=== PATIENT | male | born 1980 | race Two or more races ===

== ENCOUNTER 2018-05-06 20:52 | Emergency (ER) | payer MEDICAID, OTHER ==
[~2018-05-06] VITALS: Ht 177.8 cm; Wt 81.6 kg
[~2018-05-06 20:52] MED LIST: NORCO 5-325 TA1 EACH ORAL; PRILOSEC20 MG ORAL
[2018-05-06] MEDS ORDERED: NKM (21:33)
[2018-05-06 21:40] VITALS: BP 115/79
--- NOTE | 2018-05-06 21:40 | NUR ---
ER Nurse Note: Pt came from home c/o headache and cough since 05/04. Pt stated he "does not feel good" and feels congestion fro the nose and chest. Lung sounds clear in all lobes, VSS, a&ox4, no signs of distress. No cough, no fever. Matias continue to montior.
--- NOTE | 2018-05-06 22:29 | Emergency Room Report ---
History of Present Illness General Chief Complaint: Flu Like Symptoms Source: Patient Present Illness HPI Patient is a 37-year-old male presented after increased congestion and sore throat. He reports having generalized body aches. He has subjective fevers. He denies any vomiting or diarrhea. He reports having increased congestion as well as associated nonproductive cough. He reports taking some Robitussin without any relief. Allergies: Coded Allergies: No Known Allergies (Unverified , 01/14/15) Patient History Past Medical History: see triage record Reviewed Nursing Documentation: PMH: Agreed; PSxH: Agreed Nursing Documentation-PMH Past Medical History: No Stated History Review of Systems All Other Systems: negative except mentioned in HPI Physical Exam Vital Signs Date Time Temp Pulse Resp B/P (MAP) Pulse Ox O2 Delivery O2 Flow Rate FiO2 05/06/18 21:31 100.8 77 16 115/79 96 Room Air Sp02 EP Interpretation: reviewed, normal General Appearance: normal inspection, well appearing, no apparent distress, alert, GCS 15 Head: atraumatic ENT: normal ENT inspection, hearing grossly normal, normal voice, other - rhinorhea Neck: normal inspection, full range of motion, supple, no bony tend Respiratory: normal inspection, lungs clear, normal breath sounds, no respiratory distress, no retraction, no wheezing Cardiovascular #1: regular rate, rhythm, no edema Gastrointestinal: normal inspection, normal bowel sounds, non tender, soft, no guarding, no hernia Genitourinary: no CVA tenderness Musculoskeletal: normal inspection, back normal, normal range of motion Neurologic: normal inspection, alert, oriented x3, responsive, gemologist III-XII nml as tested, speech normal Psychiatric: normal inspection, judgement/insight normal, mood/affect normal Skin: normal inspection, normal color, no rash Medical Decision Making Diagnostic Impression: Primary Impression: Influenza-like symptoms Additional Impression: Chest wall pain ER Course Patient presented for increased cough. Differential diagnosis includes is not limited to influenza, pneumonia, sinusitis, congestive heart failure among others. Patient has a benign exam and does not appear to require any laboratory testing at this time. Chest x-ray 1 view interpreted by me showed normal cardiac size without evident infiltrate normal mediastinum. Patient was noted to have what appears to be a flulike illness. Patient was given prescription for cough medications for symptomatic treatment. Patient advised to recheck with his primary care physician in the next 1-2 days. Patient was advised return precautions. Chest X-Ray Diagnostic Results Chest X-Ray Diagnostic Results : Chest X-Ray Ordered: Yes # of Views/Limited/Complete: 1 View Indication: Chest Pain EP Interpretation: Yes Interpretation: no consolidation, no effusion, no pneumothorax, no acute cardiopulmonary disease Impression: No acute disease Last Vital Signs Date Time Temp Pulse Resp B/P (MAP) Pulse Ox O2 Delivery O2 Flow Rate FiO2 05/06/18 21:31 100.8 77 16 115/79 96 Room Air Status: improved Disposition: HOME, SELF-CARE Condition: Stable Scripts Ibuprofen* (MOTRIN*) 600 Mg Tablet 600 MG ORAL Q8H PRN for For Pain, #30 TAB 0 Refills Prov: Darrin Keller MD 05/06/18 Benzonatate* (TESSALON PERLE*) 100 Mg Capsule 100 MG ORAL THREE TIMES A DAY, #30 PERLE Prov: Darrin Keller MD 05/06/18 Referrals: ZANDER GARNICA (PCP) Darrin Keller MD May 06, 2018 22:29
--- NOTE | 2018-05-06 22:45 | NUR ---
ER Nurse Note: All orders completed per ERMD orders. Awaiting results. Pt calm and cooperative. No complains of pain. Will continue to montior; awaiting discharge orders.
[2018-05-06] MEDS ORDERED: IBUPROFEN600 MG ORAL (23:07)
[2018-05-06] MEDS ORDERED: TESSALON PERLE100 MG ORAL (23:07)
--- NOTE | 2018-05-06 23:21 | NUR ---
ER Nurse Note: Pt seen, treated, medically cleared for discharge by ERMD. Discharge instructions and prescriptions given with repeat verbalization by pt. Instructed pt to follow up with primary care physican within one week. Pt a&ox4, VSS, no signs of distress. ID band removed; left with steady gait via own transportation.
[2018-05-06 23:25] VITALS: BP 118/74
--- NOTE | 2018-05-07 12:24 | Diagnostic Imaging Report ---
Indication: Shortness of breath Technique: One view of the chest Comparison: 01/14/2015 Findings: Lungs and pleural spaces are clear. Heart size is normal . Again demonstrated is thoracic scoliotic deformity. No significant interim change Impression: No acute process
== END 2018-05-06 23:21 | disposition home or self-care (01) ==
LOC: EMR 22:23
DX: R07.89 Other chest pain (principal); R05 Cough
CPT/HCPCS: 71045; 86710; 99283